=== PATIENT | male | born 1960 | race Asian ===

== ENCOUNTER 2018-06-12 22:18 | Inpatient (IN) | payer BC ==
[~2018-06-12] VITALS: Ht 172.7 cm; Wt 65.8 kg
[~2018-06-12 22:18] MED LIST: ACYCLOVIR400 MG PO; BACTRIM1 TAB PO; BECLOMETHASONE NS; LABETALOL HCL200 MG PO; MAGNESIUM OXID400 MG PO; MIRALAX17 GM/Dose PO; PROTONIX40 MG PO; PROZ20; SENNA PLUS1 TAB PO; SODIUM BICARBO650 MG PO; ZOFI PO; [UNRECOGNIZED DRUG - OTHER] NS
[2018-06-12 22:20] VITALS: Ht 172.7 cm; Wt 65.8 kg
[2018-06-12 23:04] LABS: BASOPHIL % 0.3 % (0-2); PLATELET COUNT 245 x10^3mcL (130-400); RED CELL DISTRIBUTION WIDTH 12.5 % (11.5-14.5)
[2018-06-12 23:17] LABS: CARBON DIOXIDE 23.6 mmol/L (21-32); CHLORIDE SERUM 98 mmol/L (98-107); CREATININE SERUM 1.3 mg/dL (0.7-1.3); GFR1 > 60 mL/min; GLUCOSE SERUM 212 mg/dL (74-106); POTASSIUM SERUM 4.3 mmol/L (3.5-5.1); SODIUM SERUM 134 mmol/L (136-145)
[2018-06-12 23:22] LABS: ALKALINE PHOSPHATASE 94 U/L (46-116); ALT/SGPT 18 U/L (16-63); AST/SGOT 15 U/L (15-37); BILIRUBIN TOTAL 0.43 mg/dL (0.20-1.00); TOTAL PROTEIN, SERUM 7.2 g/dL (6.4-8.2)
[2018-06-12 23:26] LABS: ALBUMIN 3.2 g/dL (3.4-5.0)
[2018-06-13] MEDS ORDERED: FLUOXETINE40 MG (02:37)
[2018-06-13] MEDS ORDERED: METOPROLOL SUCC25 M2 (02:37)
[2018-06-13] MEDS ORDERED: PROTONIX20 MG (02:37)
[2018-06-13] MEDS ORDERED: PHARMASSURE FO0.4 MG (02:38)
[2018-06-13] MEDS ORDERED: LIPITOR40 MG (02:38)
[2018-06-13] MEDS ORDERED: LANTUS SOLOS100 U/M1 (02:38)
[2018-06-13] MEDS ORDERED: HUMALOG100 UNIT/1 (02:38)
[2018-06-13 04:31] LABS: MAGNESIUM 1.5 mg/dL (1.8-2.4); PHOSPHOROUS 3.9 mg/dL (2.5-4.9)
[2018-06-13 04:35] LABS: CHOLESTEROL/HDL RATIO 5.5
[2018-06-13 04:37] LABS: T3 TOTAL 1.09 ng/mL
[2018-06-13 04:39] LABS: FREE T4 1.21 ng/dL (0.76-1.46); FREE THYROXINE INDEX 3.3 ug/dL (1.4-4.5); T4(THYROXINE) 9.2 ug/dL (4.7-13.3)
[2018-06-13 04:58] LABS: microscopic required? NO
[2018-06-13 05:21] LABS: CALCIUM 9.5 mg/dL (8.5-10.1); CARBON DIOXIDE 24.7 mmol/L (21-32); CHLORIDE SERUM 97 mmol/L (98-107); CREATININE SERUM 1.3 mg/dL (0.7-1.3); GFR1 > 60 mL/min; GLUCOSE SERUM 194 mg/dL (74-106); POTASSIUM SERUM 4.1 mmol/L (3.5-5.1); SODIUM SERUM 134 mmol/L (136-145)
[2018-06-13 05:24] LABS: UA SPECIFIC GRAVITY <=1.005 (1.005-1.035); urine erythrocyte NEGATIVE (NEGATIVE)
[2018-06-13 05:32] VITALS: BP 117/67
[2018-06-13 05:32] LABS: AMPHETAMINE QUAL UR NONE DETECTED (See below)
[2018-06-13 05:35] LABS: BASOPHIL % 0.4 % (0-2); PLATELET COUNT 242 x10^3mcL (130-400); RED CELL DISTRIBUTION WIDTH 12.1 % (11.5-14.5)
[2018-06-13 09:57] VITALS: BP 132/76
[2018-06-13 13:06] VITALS: BP 120/67
[2018-06-13 17:41] VITALS: BP 110/60
[2018-06-13 20:53] VITALS: BP 126/75
[2018-06-14 06:05] VITALS: BP 98/56
[2018-06-14 06:26] LABS: CALCIUM 9.9 mg/dL (8.5-10.1); CARBON DIOXIDE 27.4 mmol/L (21-32); CREATININE SERUM 1.5 mg/dL (0.7-1.3); MAGNESIUM 2.2 mg/dL (1.8-2.4); PHOSPHOROUS 5.5 mg/dL (2.5-4.9); POTASSIUM SERUM 4.5 mmol/L (3.5-5.1)
[2018-06-14 06:30] LABS: BASOPHIL % 0.2 % (0-2); PLATELET COUNT 257 x10^3mcL (130-400); RED CELL DISTRIBUTION WIDTH 12.8 % (11.5-14.5)
[2018-06-14 09:22] VITALS: BP 112/64
[2018-06-14 12:31] VITALS: BP 129/71
[2018-06-14 17:01] VITALS: BP 127/66
[2018-06-14 21:12] VITALS: BP 116/65
[2018-06-15 05:04] VITALS: BP 110/65
[2018-06-15 05:51] LABS: CALCIUM 9.8 mg/dL (8.5-10.1); CARBON DIOXIDE 23.8 mmol/L (21-32); CREATININE SERUM 1.6 mg/dL (0.7-1.3); PHOSPHOROUS 4.9 mg/dL (2.5-4.9); POTASSIUM SERUM 5.1 mmol/L (3.5-5.1)
[2018-06-15 07:18] LABS: BASOPHIL % 0.2 % (0-2); PLATELET COUNT 279 x10^3mcL (130-400)
[2018-06-15 09:06] VITALS: BP 104/62
[2018-06-15] MEDS ORDERED: PRE20 PO (09:49)
[2018-06-15] MEDS ORDERED: PREDNISONE20 MG PO (09:50)
[2018-06-15] MEDS ORDERED: PREDNISONE10 MG PO (09:57)
[2018-06-15] MEDS ORDERED: LEVAQUIN750 MG PO (10:26)
[2018-06-15] MEDS ORDERED: LEVAQUIN500 M1 PO ×2 (10:34→10:35)
[2018-06-15 11:08] VITALS: BP 104/62
== END 2018-06-15 11:52 | disposition home or self-care (01) | DRG 196 ==
LOC: ED 22:18 → DU 06-13 03:33
PROVIDERS: Emergency Medicine; Internal Medicine
DX: J84.89 Other specified interstitial pulmonary diseases (principal); J18.9 Pneumonia, unspecified organism; N17.0 Acute kidney failure with tubular necrosis; J96.01 Acute respiratory failure with hypoxia; E44.0 Moderate protein-calorie malnutrition; J44.1 Chronic obstructive pulmonary disease with (acute) exacerbation; D68.59 Other primary thrombophilia; J44.0 Chronic obstructive pulmonary disease with (acute) lower respiratory infection; Z94.81 Bone marrow transplant status; Z99.81 Dependence on supplemental oxygen; E83.42 Hypomagnesemia; E11.65 Type 2 diabetes mellitus with hyperglycemia; E78.00 Pure hypercholesterolemia, unspecified; I11.0 Hypertensive heart disease with heart failure; I50.9 Heart failure, unspecified; G90.8 Other disorders of autonomic nervous system; G47.33 Obstructive sleep apnea (adult) (pediatric); E83.39 Other disorders of phosphorus metabolism; Z82.49 Family history of ischemic heart disease and other diseases of the circulatory system; Z85.6 Personal history of leukemia; Z79.4 Long term (current) use of insulin; Z92.21 Personal history of antineoplastic chemotherapy; Z68.22 Body mass index [BMI] 22.0-22.9, adult; Z87.891 Personal history of nicotine dependence
CPT/HCPCS: 36600; 82962; 83880; 84439; 94150; J0456; J0696; J1940; J1956; J2543; J2920; J2930; J3475; J3490; J7050; J7620; Q0092; Q9967